=== PATIENT | male | born 1960 | race Caucasian/White ===

== ENCOUNTER → 2019-04-21 | Outpatient (CLI) | payer OTHER ==
[~2019-04-21] MED LIST: ACET500T68 PO; ASPI325T8 PO; MULT-245 PO; NAPR-514 PO; SAW/1TAB2 PO
[2019-04-21 09:43] LABS: BASO # 0.1 x10^3/uL (0.0-0.2); BASO % 1 % (0-3); EOS # 0.1 x10^3/uL (0.0-0.7); EOS % 1 % (0-3); HEMATOCRIT 48.3 % (39.0-53.0); HEMOGLOBIN 16.3 g/dL (13.0-17.5); LYMPH # 1.5 x10^3/uL (1.0-4.8); LYMPH % 20 % (24-48); MEAN CORPUSCULAR HEMOGLOBIN 30 pg (25-35); MEAN CORPUSCULAR HGB CONC 34 g/dL (31-37); MEAN CORPUSCULAR VOLUME 90 fL (79-100); MONO # 0.7 x10^3/uL (0.0-1.1); MONO % 9 % (0-9); NEUT # 5.2 x10^3/uL (1.8-7.7); NEUT % 69 % (31-73); PLATELET COUNT 268 x10^3/uL (140-400); RED BLOOD COUNT 5.39 x10^6/uL (4.30-5.70); RED CELL DISTRIBUTION WIDTH 13.5 % (11.5-14.5); WHITE BLOOD COUNT 7.4 x10^3/uL (4.0-11.0)
[2019-04-21 10:07] LABS: CREATININE 0.9 mg/dL (0.7-1.3); GFR 86.7; POTASSIUM 4.3 mmol/L (3.5-5.1)
[2019-04-21 10:20] LABS: PROTHROMBIN TIME PATIENT 12.1 SEC (11.7-14.0)
--- NOTE | 2019-04-21 13:18 | EKG ---
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
--- NOTE | 2019-04-21 17:52 | RAD ---
EXAM: CHEST PA LATERAL INDICATION: Preop joint replacement. TECHNIQUE: PA and lateral views COMPARISON: None FINDINGS: The heart size is normal. The great vessels appear unremarkable. There is no hilar or mediastinal mass. The lungs are clear. There is no pleural effusion or pneumothorax. There are no significant osseous abnormalities. IMPRESSION: No active cardiopulmonary disease. Electronically signed by: Rickie Olivera MD (04/21/2019 5:49 PM) [id number]
[2019-04-22 00:08] LABS: HEMOGLOBIN A1C 5.6 % (4.8-5.6)
== END | disposition home or self-care (01) ==
LOC: SURGPAT 13:25
PROVIDERS: ATTEND Orthopaedic Surgery
DX: Z01.818 Encounter for other preprocedural examination (principal); M17.12 Unilateral primary osteoarthritis, left knee; E66.9 Obesity, unspecified
CPT/HCPCS: 36415; 71046; 80048; 82306; 83036; 85025; 85610; 85651; 85730; 87641; 93005

== ENCOUNTER → 2019-07-25 | Outpatient (CLI) | payer OTHER ==
[2019-04-23 13:23] VITALS: BP 137/88
[~2019-07-25] MED LIST changes: +ASPI325T11 PO; +CELE200C PO; +OXYC1TAB22 PO
[2019-07-25 15:30] LABS: PROTHROMBIN TIME PATIENT 12.3 SEC (11.7-14.0)
[2019-07-25 16:00] LABS: ALBUMIN 3.7 g/dL (3.4-5.0); C-REACTIVE PROTEIN 4.8 mg/L (0-3.3); CALCIUM 8.5 mg/dL (8.5-10.1); CREATININE 0.9 mg/dL (0.7-1.3); GFR 86.4; POTASSIUM 3.9 mmol/L (3.5-5.1)
[2019-07-27 02:06] LABS: HEMOGLOBIN A1C 5.6 % (4.8-5.6)
== END | disposition home or self-care (01) ==
LOC: SURGPAT 14:19
PROVIDERS: ATTEND Orthopaedic Surgery
DX: Z01.818 Encounter for other preprocedural examination (principal); Z11.59 Encounter for screening for other viral diseases; M17.12 Unilateral primary osteoarthritis, left knee
CPT/HCPCS: 36415; 80048; 82040; 82306; 83036; 85610; 85730; 86140; 87641; U0003

== ENCOUNTER 2019-07-29 05:50 | Inpatient (IN) | payer OTHER ==
--- NOTE | 2019-07-28 17:25 | PDOC1 ---
History and Physical Date of Admission Date of Admission 07/28/2019 Identification/Chief Complaint Chief Complaint Osteoarthritis pain of both knees Source Source: Chart review History of Present Illness History of Present Illness Aroldo is a 58-year-old man here with bilateral knee pain (L>R). Prior patient of mine and I treated him in the past for knee osteoarthritis nonoperatively. 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 In last 10 years has tried cortisone injections, years of NSAID's, aspirin, and alternating naproxen/Tylenol. Tried a brace on his left knee that did not help. No history of physical therapy. History of plantar fasciitis in right foot. Currently, he reports progressive pain in both knees for the past several years. He notes that his knees bother him at work although he doesn't need to kneel on his knees very often at work. He would be unable to walk 30 minutes for exercise and reports pain while walking at [employer]. Would be able to walk for exercise until 4 months ago after an injury to the left knee. No known metal/nickel allergy. Denies history of thrombosis. Family History Family History mother-alive father-alive Social History Smoke: No ALCOHOL: rare Current Medications Current Medications Current Medications Ondansetron HCl (Zofran) 4 mg PRN Q6HRS PRN IV NAUSEA/VOMITING; Start 07/29/19 at 07:00; Stop 07/30/19 at 06:59 Fentanyl Citrate (Fentanyl 2ml Vial) 25 mcg PRN Q5MIN PRN IV MILD PAIN 1-3; Start 07/29/19 at 07:00; Stop 07/30/19 at 06:59 Fentanyl Citrate (Fentanyl 2ml Vial) 50 mcg PRN Q5MIN PRN IV MODERATE TO SEVERE PAIN; Start 07/29/19 at 07:00; Stop 07/30/19 at 06:59 Morphine Sulfate (Morphine Sulfate) 1 mg PRN Q10MIN PRN IV SEVERE PAIN 7-10; Start 07/29/19 at 07:00; Stop 07/30/19 at 06:59 Ringer's Solution 1,000 ml @ 30 mls/hr Q24H IV ; Start 07/29/19 at 07:00; Stop 07/29/19 at 18:59 Lidocaine HCl (Xylocaine-Mpf 1% 2ml Vial) 2 ml PRN 1X PRN ID PRIOR TO IV START; Start 07/29/19 at 07:00; Stop 07/30/19 at 06:59 Hydromorphone HCl (Dilaudid) 0.5 mg PRN Q10MIN PRN IV SEV PAIN, Second choice; Start 07/29/19 at 07:00; Stop 07/30/19 at 06:59 Prochlorperazine Edisylate (Compazine) 5 mg PACU PRN PRN IV NAUSEA, MRX1; Start 07/29/19 at 07:00; Stop 07/30/19 at 06:59 Morphine Sulfate 5 mg/Ketorolac Tromethamine 30 mg/Ropivacaine 60 ml/Epinephrine HCl 0.5 mg/Sodium Chloride 100 ml @ 100 mls/hr 1X ONCE INT ART ; Start 07/29/19 at 06:00; Stop 07/29/19 at 06:59 Active Scripts Active Reported Aspirin 325 Mg Tablet 325 Mg PO DAILY Acetaminophen 500 Mg Tablet 2 Tab PO PRN Q4-6HRS PRN Allergies Allergies: Coded Allergies: No Known Drug Allergies (Unverified , 07/25/19) ROS Review of System OPHTHALMOLOGY: Blurred vision none. Double vision denies. Change in vision none. ENT: Hearing loss none. Change in voice denies. Rhinorrhea none. CARDIOLOGY: Palpitations none. Shortness of breath denies. Chest pain denies. CONSTITUTIONAL: Fever denies. Chills denies. Weight gain denies. Weakness none. weight loss denies. Fatigue none. GASTROENTEROLOGY: Diarrhea denies. Vomiting none. Dysphagia none. UROLOGY: Voiding normally yes. Hematuria none. MUSCULOSKELETAL: Chronic back or neck pain denies. Swelling of the feet, hands, ankles and /or legs denies. Joint pain reports. Tingling/numbness no. DERMATOLOGY: Rash denies. Lumps none. NEUROLOGY: Dizziness/lightheadedness denies. Double vision, temporary blindness denies. Tingling/numbness none. PSYCHOLOGY: Change in mood or personality denies. Memory loss none. ENDOCRINOLOGY: Obesity denies. Fatigue none. Weight loss none. HEMATOLOGY/LYMPH: Hepatitis denies. Enlarged lymph nodes denies. Physical Exam General: Alert, Cooperative HEENT: Atraumatic Lungs: Normal air movement Heart: RRR Abdomen: Soft Extremities: No clubbing, No edema, Other (The RIGHT knee shows a mildly antalgic gait. There is varus alignment. No masses. No detectable effusion. Tenderness on the joint lines. Range of motion is 5-115 degrees. There is crepitus with range of motion, and pain at the extremes of motion. The knee is stable to varus and valgus stress without subluxation or laxity. Muscle strength is slightly weak for the quadriceps 4+/5 which may be due to pain or avoidance, and does not seem neurogenic, and the muscle tone and bulk is slightly decreased. The hamstring strength is 5/5. The skin is normal with no scars, rashes, lesions or ulcers. Light touch sensation is intact. No edema and no varicosities. Dorsalis pedis pulse is intact and capillary refill is normal. The LEFT knee shows a mildly antalgic gait. There is varus alignment. No masses. No detectable effusion. Tenderness on the joint lines. Range of motion is 10-95 degrees. There is crepitus with range of motion, and pain at the extremes of motion. The knee is stable to varus and valgus stress without subluxation or laxity. Muscle strength is slightly weak for the quadriceps 4+/5 which may be due to pain or avoidance, and does not seem neurogenic, and the muscle tone and bulk is slightly decreased. The hamstring strength is 5/5. The skin is normal w ith no scars, rashes, lesions or ulcers. Light touch sensation is intact. No edema and no varicosities. Dorsalis pedis pulse is intact and capillary refill is normal. Foot: BILATERAL feet show normal skin, pulses, and sensation. Normal capillary refill. ) Skin: No rashes, No breakdown, No significant lesion Neuro: Normal speech, Sensation intact Vitals Vitals Vital Signs Date Time Temp Pulse Resp B/P (MAP) Pulse Ox O2 Delivery O2 Flow Rate FiO2 07/25/19 14:47 98.0 72 20 98 98.0 Images Images [facility] [address] [place] [address] IMAGING REPORT Signed PATIENT: AROLDO PIMENTEL ACCOUNT: [id number] : 1960 LOCATION: [facility] AGE: 58 SEX: M EXAM STATUS: REG CLI ORD. PHYSICIAN: CHRISTOPHER MORFIN MD REASON: PROCEDURE: KNEE BILAT 3V 3 VIEW STUDY OF BOTH KNEES Clinical indications: Bilateral knee pain. No known injury. Right knee: There is severe joint space narrowing and moderate spurring and mild subchondral cyst formation with subchondral sclerosis of the medial tibiofemoral joint compartment. There is mild spurring without joint space narrowing of the lateral tibiofemoral joint compartment. There is mild degenerative spurring of the patellofemoral joint compartment without joint space narrowing. No acute fracture or dislocation or lytic process is seen. Small right knee joint effusion is seen. IMPRESSION: Tricompartmental primary degenerative osteoarthritis of the right knee most severely involving the medial tibiofemoral joint compartment. Left knee: There is severe joint space narrowing and moderate spurring and mild subchondral sclerosis of the medial tibiofemoral joint compartment. There is mild spurring without joint space during involving the lateral tibiofemoral joint compartment. There is moderate spurring without joint space narrowing of the patellofemoral joint compartment. No acute fracture or dislocation or lytic process is seen. Small left knee joint effusion is seen. IMPRESSION: Tricompartmental primary degenerative osteoarthritis of the left knee most severely involving the medial tibiofemoral joint compartment. Electronically signed by: Rosalind Kent MD (04/03/2019 3:19 PM) [facility] DICTATED and SIGNED BY: ROSALIND KENT MD DATE: 04/03/19 1519 VTE Prophylaxis Ordered VTE Prophylaxis Devices: Yes VTE Pharmacological Prophylaxi: Yes Assessment/Plan Assessment/Plan He has [id number] osteoarthritis of both knees. He tried nonoperative treatment with cortisone injections, brace, NSAID's, and Naproxen without relief I believe that total knee replacement is the logical next step. He is interested in the possibility of bilateral total knee arthroplasty to cut down on time off work and we discussed the increased risk of complications and infection with bilateral knee replacement. I explained that I rarely recommend bilateral TKA although I would be willing to do this for him as he is very healthy and at a relatively low risk for postoperative complications. We discussed the potential risks of infection, neurovascular injury, fracture, bleeding, blood clots, malalignment, need for revision surgery, or other potential surgical or anesthetic complications. I recommended the robotic NAVIO instrumentation and we discussed my reasoning. We also discussed postoperative treatment and expectations including residual numbness over the knee. All of his questions were answered and he desires to proceed with total knee replacement. He is here today for elective bilateral total knee arthroplasty. Justicifation of Admission Dx: Justifications for Admission: Justification of Admission Dx: N/A CHRISTOPHER MORFIN MD Jul 28, 2019 17:25
[~2019-07-29] VITALS: Ht 180.3 cm; Wt 124.3 kg
[2019-07-29] VITALS (8 sets, daily range): BP systolic 109–156; BP diastolic 73–99
[~2019-07-29 05:50] MED LIST changes: -ASPI325T11 PO; -CELE200C PO; -OXYC1TAB22 PO
[2019-07-29] MEDS ORDERED: ACETAMINOPHEN 500 MG TABLET PO PRN (06:00)
[2019-07-29] MEDS ORDERED: CELECOXIB 100 MG CAPSULE. PO SCH (06:00)
[2019-07-29] MEDS ORDERED: TRANEXAMIC ACID 1,000 MG in IV NS 50ML -- 1ST BAG INJ ONE (06:00)
[2019-07-29] MEDS ORDERED: MORPHINE SULFATE 5 MG, KETOROLAC 30MG VIAL 30 MG, ROPIVacaine 0.5% PF 60 ML, EPINEPHrin... INT ART ONE ×5 (06:00)
[2019-07-29] MEDS ORDERED: ONDANSETRON PF 4 MG/2 ML VIAL. ONE (06:53)
[2019-07-29] MEDS ORDERED: PROPOFOL 10 MG/ML (20ML) VIAL. IV ONE ×2 (06:53→08:32)
[2019-07-29] MEDS ORDERED: DEXAMETHASONE SOD PHOS 4 MG/ML VIAL ONE (06:53)
[2019-07-29] MEDS ORDERED: fentaNYL PF VIAL 100 MCG/2 ML VIAL ONE ×3 (06:53→07:54)
[2019-07-29] MEDS ORDERED: LIDOCAINE 2% PF 5 ML VIAL. ONE (06:53)
[2019-07-29] MEDS ORDERED: ROCURONIUM 50 MG/5 ML VIAL. ONE ×2 (06:54→07:53)
[2019-07-29 07:00] LABS: BASO % 1 % (0-3); EOS # 0.1 x10^3/uL (0.0-0.7); EOS % 1 % (0-3); HEMOGLOBIN 15.7 g/dL (13.0-17.5); LYMPH # 2.1 x10^3/uL (1.0-4.8); LYMPH % 30 % (24-48); MEAN CORPUSCULAR HEMOGLOBIN 31 pg (25-35); MEAN CORPUSCULAR HGB CONC 34 g/dL (31-37); MEAN CORPUSCULAR VOLUME 90 fL (79-100); MONO # 0.7 x10^3/uL (0.0-1.1); MONO % 10 % (0-9); NEUT % 58 % (31-73); PLATELET COUNT 265 x10^3/uL (140-400); RED BLOOD COUNT 5.14 x10^6/uL (4.30-5.70); RED CELL DISTRIBUTION WIDTH 13.4 % (11.5-14.5); WHITE BLOOD COUNT 6.9 x10^3/uL (4.0-11.0)
[2019-07-29] MEDS ORDERED: ONDANSETRON PF 4 MG/2 ML VIAL. IV PRN (07:00)
[2019-07-29] MEDS ORDERED: IV RINGERS,LACTATED 1000ML 1,000 ML IV SCH (07:00)
[2019-07-29] MEDS ORDERED: fentaNYL PF VIAL 100 MCG/2 ML VIAL IV PRN ×2 (07:00)
[2019-07-29] MEDS ORDERED: VANCOMYCIN 1 GM VIAL. ONE ×4 (07:00→07:01)
[2019-07-29] MEDS ORDERED: HYDROmorphone 2 MG/ML VIAL IV PRN (07:00)
[2019-07-29] MEDS ORDERED: PROCHLORPERAZINE 10 MG/2 ML VIAL. IV PRN (07:00)
[2019-07-29] MEDS ORDERED: ceFAZolin 2GM PREMIX 2 GM/50 ML BAG IV ONE (07:00)
[2019-07-29] MEDS ORDERED: LIDOCAINE 1% PF 2 ML VIAL. ID PRN (07:00)
[2019-07-29] MEDS ORDERED: MORPHINE SULFATE 2 MG/ML VIAL. IV PRN (07:00)
[2019-07-29] MEDS ORDERED: TOBRAMYCIN POWDER 1.2 GM VIAL. ONE ×2 (07:01)
[2019-07-29] MEDS ORDERED: SUCCINYLCHOLINE 200 MG/10 ML VIAL. ONE (07:03)
[2019-07-29] MEDS ORDERED: MIDAZOLAM HCL/PF 2 MG/2 ML VIAL. ONE (07:39)
[2019-07-29] MEDS ORDERED: SEVOFLURANE > 120 MINUTES. IH ONE (07:53)
[2019-07-29] MEDS ORDERED: FAMOTIDINE 20 MG/2 ML VIAL ONE (07:54)
[2019-07-29] MEDS ORDERED: TRANEXAMIC ACID 1,000 MG in IV NS 50ML -- 2ND BAG INJ ONE (08:00)
[2019-07-29] MEDS ORDERED: GLYCOPYRROLATE 1 MG/5 ML VIAL. ONE (08:03)
[2019-07-29] MEDS ORDERED: NEOSTIGMINE METHYLSULFATE 5 MG/5 ML SYRINGE. ONE (08:04)
[2019-07-29] MEDS ORDERED: hydrALAZINE 20 MG/ML VIAL. ONE (08:29)
[2019-07-29] MEDS ORDERED: ceFAZolin SODIUM IV Push 1 GM VIAL. IVP ONE (10:18)
[2019-07-29] MEDS ORDERED: MORPHINE SULFATE 10 MG/ML VIAL. ONE (12:28)
--- NOTE | 2019-07-29 12:39 | PDOC4 ---
Operative Note Operative Note Date of Procedure: July 29, 2019 Pre-Op Diagnosis: * Unilateral primary osteoarthritis, left knee. M17.12 * Unilateral primary osteoarthritis, right knee. M17.11 Post-Op Diagnosis: same Procedure: bilateral total knee arthroplasty with patella resurfacing, robotic assisted, CPT 79225-97 Surgeon: Christopher Gutierrez MD [employer]ine [employer] Separator Operator: Afshin VASQUEZ Anesthesia: General EBL: 200 mL Specimens Obtained: bilateral knee bone and soft tissue Complications: none Drains: hemovac plus pain catheter Tourniquet time: 87 minutes left knee, 79 minutes right knee Tourniquet Pressure: 300 mm Hg Indications for Procedure: Arthritis pain unrelieved by nonoperative management Findings: Severe osteoarthritis with bone on bone contact medially of each knee. Full thickness cartilage loss of each knee at the patellofemoral joint at the medial patellar facet and medial trochlea. Small areas of high-grade cartilage full-thickness loss on the lateral compartments bilaterally. Severe flexion contracture bilaterally 16 degrees left and 18 degrees right as measured by NAVIO. Both knees had fixed varus deformity, which required medial collateral release on the tibia of bilateral knees. Neither knee required lateral patellofemoral release. Implants used: * Saucedo & Nephew Size 6 left bicruciate stabilized Journey II BCS Oxinium femoral component, size 5 left Journey nonporous tibial baseplate, size 5-6 12 mm left Journey II BCS XLPE articular insert, 35 mm oval Mary II resurf acing patellar component * Saucedo & Nephew Size 6 right bicruciate stabilized Journey II BCS Oxinium femoral component, size 5 right Journey nonporous tibial baseplate, size 5-6 12 mm right Journey II BCS XLPE articular insert, 35 mm oval Mary II resurfacing patellar component * Procedure in Detail: The patient was identified in the preoperative holding area, and both knees were marked by me. The patient was taken to the operating room where the patient was anesthetized by the Department of Anesthesia. Tranexamic acid 1 g was given intravenously for intraoperative hemostasis. A "time-out" procedure was performed. The patient was positioned supine on the operative table with a tourniquet on the upper thigh bilaterally. Both lower limbs were thoroughly sc rubbed, then sterile surgical prep solution was applied, and both limbs were draped in sterile fashion. An impervious stockinet and adhesive drape were used on each lower leg, such that the skin was entirely covered. The operating team wore personal exhaust-ventilated hoods including the [employer] Personal Protection Toga Zippered Peel-Away protection system for me and for my therapist's assistant. The left lower limb was exsanguinated with an Esmarch bandage, and the tourniquet was inflated. A midline skin incision was made with a scalpel using the patella and tibial tubercle as landmarks. Electrocautery was used for hemostasis. My therapist's assistant used rake retractors. An impervious stockinet and an adhesive drape were used such that the skin was entirely covered. The limb was exsanguinated with an Esmarch bandage, and the tourniquet was inflated. A midline skin incision was made with a scalpel using the patella and tibial tubercle as landmarks. Electrocautery was used for hemostasis. My therapist's assistant used rake retractors and a laparotomy sponge. A medial parapatellar arthrotomy incision was used with extension into the distal quadriceps tendon. The patella was retracted laterally and Hohmann retractors were now used by my therapist's assistant. Excess synovium, the menisci, and the cruciate ligaments were resected sharply. A periarticular multimodal ropivacaine anesthetic injection was used in the suprapatellar pouch and distal quadriceps muscle. The patella was everted and exposed. The patella thickness was measured with a caliper, and then cut freehand with a saw, using caliper measurements to assess the resection. The lateral retinaculum was partially released from the lateral patella using electrocautery. Rongeurs were used to make sure there were no remaining exposed patellar osteophytes medially or laterally. The patella was sized, and then drilled for an oval three-peg patella component. The tibial tracker array for the NAVIO system was applied to the tibial crest four finger breadths below the tibial tubercle, using percutaneous incisions and bicortical pins. The femoral tracker array was applied outside of the original incision using two separate stab incisions using bicortical pins. Checkpoint verification pins were applied to the femur and tibia. Using the point probe, the medial and lateral malleoli were localized and the locations were stored. The center of the tibia was noted at the anterior cruciate ligament insertion and stored. The center of the femur was marked at the intersection of Whitesidess line with the transepicondylar axis. The hip center calculation was performed with range of motion of the hip. The femur neutral position was identified, and simulated weightbearing was performed with axial compression on the foot. Range of motion without stress was performed and the data collected. Range of motion with valgus stress, and range of motion with varus stress data collection was also performed. Rotational references include the Whitesidess line, and the trans-epicondylar axis. The femoral articular surface was now mapped in 3 dimensions using the point probe and digital data collected. The tibial condyle articular surfaces and cortical edges were mapped in 3 dimensions using the point probe including the medial and lateral tibial plateau. Implant planning was now performed on-screen with manipulation of the implant sizes, cut thicknesses and gaps, component rotation, component flexion/extension and component varus/valgus until satisfactory ligament balance, alignment and stability of the knee was expected throughout the range of motion. My therapist's assistant held Hohmann retractors and an [facility] retractor to protect the medial and lateral collateral ligaments, the patellar tendon, the skin and the other soft tissues. The point probe was used to confirm the location of the checkpoint verification pins. The distal femoral surface was now prepared using the Anspach gloria with footpedal, and the NAVIO handpiece for bone removal to the previously planned distal femoral resection. The crosshairs at the pin locat ions were marked by using a mallet and the point probe for definitive location. A 5-in-1 Journey II cutting guide was then applied and the position was checked with the virtual horace wing from the NAVIO to ensure proper placement as the pins were applied. The posterior, anterior, and all chamfer cuts were made with the oscillating saw. Excess bone was removed with an osteotome and rongeurs. The tibial cutting guide was applied, positioned using the NAVIO virtual horace wing, and secured to the upper tibia using three pins at the previously planned location. The virtual horace wing was used to confirm the resection depth, slope and coronal alignment. The upper tibia was cut made with an oscillating saw. My therapist's assistant held Hohmann retractors and a posterior cruciate ligament retractor to protect the medial and lateral collateral ligaments, the patellar tendon, the skin, the peroneal nerve and the other soft tissues. The upper tibia was sized with a trial baseplate. The posterior compartment was cleared of osteophytes and loose bodies. The periarticular anesthetic injection was used in the posterior compartment. The box cut for a posterior stabilized component was made. A preliminary reduction was performed with a trial femur, trial tibial baseplate and trial polyethylene. The NAVIO system was used to confirm range of motion, and postoperative stressed gap assessment. A medial release was required, using a 10 blade scalpel, and a Whitaker elevator to elevate the medial structures from the upper medial tibia. The stability was assessed using different thicknesses of tibial articular surface to find satisfactory stability and good range of motion. The rotation of the tibial component was marked on the upper tibia. Final trial reduction was now performed verifying patella tracking and tibiofemoral stability and alignment. The bone pins and tracker arrays were removed, and the checkpoint verification pins were removed. The tibia preparation was completed with a drill, saw, and fin punch at the previously noted rotation. The final implants were verified and opened. Outer gloves were changed by the operating team. Betadine lavage was used. The bone cuts were irrigated with saline using the Neomatrix InterPulse device and then dried with suction and laparotomy sponges. Two packages of Saucedo + Nephew Rally HV bone cement were mixed in powdered form with Vancomycin 1gm and Tobramycin 1.2 gm, and then vacuum-mixed with the monomer, and placed into a cement gun. The cut surfaces of the bone were thoroughly dried with suction and with laparotomy sponges for cement interdigitation. The final components were cemented into place. The knee was kept at full extension while the cement hardened, and excess cement was removed. Tranexamic acid 1 g was redosed intravenously for additional intraoperative hemostasis. The tourniquet was released, and electrocautery was used for hemostasis. A final periarticular anesthetic injection was used for pain relief. The bone pin sites on the tibial crest were closed with #3-0 Nylon sutures. A final check of [id number] and stability was made, and the polyethylene implant final size was chosen. The polyethylene implant was secured to the tibial baseplate, and the knee was reduced a final time and range of motion and stability was confirmed. Thorough irrigation was used. A pain catheter, and a 15 Fr Hemovac were inserted. Topical Vancomycin 1 gm was used during the closure. The arthrotomy was closed with interrupted [id number] #1 Vicryl suture. The arthrotomy incision was then run with #1 STRATAFIX Symmetric PDS Plus Knotless suture. The subcutaneous tissues were approximated initially with #2-0 Vicryl inverted interrupted sutures by me and my therapist's assistant. Next the subcuticular layer was approximated in a running fashion with #3-0 STRATAFIX suture by my therapist's assistant. A sterile towel was placed over the left leg until the completion when the Prerna dressing was applied. An additional 2 g of intravenous Ancef was given before the right knee surgery. The right lower limb was exsanguinated with an Esmarch bandage, and the tourniquet was inflated. A midline skin incision was made with a scalpel using the patella and tibial tubercle as landmarks. Electrocautery was used for hemostasis. My therapist's assistant used rake retractors and a laparotomy sponge. A medial parapatellar arthrotomy incision was used with extension into the distal quadriceps tendon. The patella was retracted laterally and Hohmann retractors were now used by my therapist's assistant. Excess synovium, the menisci, and the cruciate ligaments were resected sharply. A periarticular multimodal ropivacaine anesthetic injection was used in the suprapatellar pouch and distal quadriceps muscle. The patella was everted and exposed. The patella thickness was measured with a caliper, and then cut freehand with a saw, using caliper measurements to assess the resection. The lateral retinaculum was partially released from the lateral patella using electrocautery. Rongeurs were used to make sure there were no remaining exposed patellar osteophytes medially or laterally. The patella was sized, and then drilled for an oval three-peg patella component. The tibial tracker array for the NAVIO system was applied to the tibial crest four finger breadths below the tibial tubercle, using percutaneous incisions and bicortical pins. The femoral tracker array was applied outside of the original incision using two separate stab incisions using bicortical pins. Checkpoint verification pins were applied to the femur and tibia. Using the point probe, the medial and lateral malleoli were localized and the locations were stored. The center of the tibia was noted at the anterior cruciate ligament insertion and stored. The center of the femur was marked at the intersection of Whitesidess line with the transepicondylar axis. The hip center calculation was performed with range of motion of the hip. The femur neutral position was identified, and simulated weightbearing was performed with axial compression on the foot. Range of motion without stress was performed and the data collected. Range of motion with valgus stress, and range of motion with varus stress data collection was also performed. Rotational references include the Whitesidess line, and the trans-epicondylar axis. The femoral articular surface was now mapped in 3 dimensions using the point probe and digital data collected. The tibial condyle articular surfaces and cortical edges were mapped in 3 dimensions using the point probe including the medial and lateral tibial plateau. Implant planning was now performed on-screen with manipulation of the implant sizes, cut thicknesses and gaps, component rotation, component flexion/extension and component varus/valgus until satisfactory ligament balance, alignment and stability of the knee was expected throughout the range of motion. My therapist's assistant held Hohmann retractors and an [facility] retractor to protect the medial and lateral collateral ligaments, the patellar tendon, the skin and the other soft tissues. The point probe was used to confirm the location of the eckpoint verification pins. The distal femoral surface was now prepared using the Anspach gloria with footpedal, and the NAVIO handpiece for bone removal to the previously planned distal femoral resection. The crosshairs at the pin locations were marked by using a mallet and the point probe for definitive location. A 5-in-1 Journey II cutting guide was then applied and the position was checked with the virtual horace wing from the NAVIO to ensure proper placement as the pins were applied. The posterior, anterior, and all chamfer cuts were made with the oscillating saw. Excess bone was removed with an osteotome and rongeurs. The tibial cutting guide was applied, positioned using the NAVIO virtual horace wing, and secured to the upper tibia using three pins at the previously planned location. The virtual horace wing was used to confirm the resection depth, slope and coronal alignment. The upper tibia was cut made with an oscillating saw. My therapist's assistant held Hohmann retractors and a posterior cruciate ligament retractor to protect the medial and lateral collateral ligaments, the patellar tendon, the skin, the peroneal nerve and the other soft tissues. The upper tibia was sized with a trial baseplate. The posterior compartment was cleared of osteophytes and loose bodies. The periarticular anesthetic injection was used in the posterior compartment. The box cut for a posterior stabilized component was made. A preliminary reduction was performed with a trial femur, trial tibial baseplate and trial polyethylene. The NAVIO system was used to confirm range of motion, and postoperative stressed gap assessment. A medial release was required, using a 10 blade scalpel, and a Whitaker elevator to elevate the medial structures from the upper medial tibia similar to the left knee. The stability was assessed using different thicknesses of tibial articular surface to find satisfactory stability and good range of motion. The rotation of the tibial component was marked on the upper tibia. Final trial reduction was now performed verifying patella tracking and tibiofemoral stability and alignment. The bone pins and tracker arrays were removed, and the checkpoint verification pins were removed. The tibia preparation was completed with a drill, saw, and fin punch at the previously noted rotation. The final implants were verified and opened. Outer gloves were changed by the operating team. Betadine lavage was used. The bone cuts were irrigated with saline using the Neomatrix InterPulse device and then dried with suction and laparotomy sponges. Two packages of Saucedo + Nephew Rally HV bone cement were mixed in powdered form with Vancomycin 1gm and Tobramycin 1.2 gm, and then vacuum-mixed with the monomer, and placed into a cement gun. The cut surfaces of the bone were thoroughly dried with suction and with laparotomy sponges for cement interdigitation. The final components were cemented into place. The knee was k ept at full extension while the cement hardened, and excess cement was removed. He had previously received 2 grams of IV tranexamic acid so no additional doses were given at this time. The tourniquet was released, and electrocautery was used for hemostasis. A final periarticular anesthetic injection was used for pain relief. The bone pin sites on the tibial crest were closed with #3-0 Nylon sutures. A final check of [id number] and stability was made, and the polyethylene implant final size was chosen. The polyethylene implant was secured to the tibial baseplate, and the knee was reduced a final time and range of motion and stability was confirmed. Thorough irrigation was used. A pain catheter, and a 12 Fr Hemovac were inserted. Topical Vancomycin 1 gm was used during the closure. The arthrotomy was closed with interrupted [id number] #1 Vicryl suture. The arthrotomy incision was then run with #1 STRATAFIX Symmetric PDS Plus Knotless suture. The subcutaneous tissues were approximated initially with #2-0 Vicryl inverted interrupted sutures by my therapist's assistant. Next the subcuticular layer was approximated in a running fashion with #3-0 STRATAFIX suture by my therapist's assistant. The skin incisions was then covered and reinforced with PRERNA single use negative pressure wound therapy dressings. Needle and sponge counts were correct. There were no apparent complications. The patient returned to the recovery room in stable condition. CHRISTOPHER GUTIERREZ MD Jul 29, 2019 12:39
[2019-07-29] MEDS ORDERED: PROCHLORPERAZINE 5 MG TABLET. PO PRN (12:45)
[2019-07-29] MEDS ORDERED: fentaNYL PF VIAL 100 MCG/2 ML VIAL IVP PRN (12:45)
[2019-07-29] MEDS ORDERED: METOCLOPRAMIDE HCL 10 MG/2 ML VIAL. IVP PRN (12:45)
[2019-07-29] MEDS ORDERED: 0.9 % SODIUM CHLORIDE 10 ML DISP.SYRIN. IV PRN (12:45)
[2019-07-29] MEDS ORDERED: MORPHINE SULFATE 4 MG/ML VIAL. IVP PRN (12:45)
[2019-07-29] MEDS ORDERED: MORPHINE SULFATE 2 MG/ML VIAL. IVP PRN (12:45)
[2019-07-29] MEDS ORDERED: diphenhydrAMINE 50 MG/ML VIAL IVP PRN (12:45)
[2019-07-29] MEDS ORDERED: oxyCODONE/APAP 5/325 1 TAB TABLET PO PRN (12:45)
[2019-07-29] MEDS ORDERED: CALCIUM CARBONATE 500 MG TAB.CHEW PO PRN (12:45)
[2019-07-29] MEDS ORDERED: ZOLPIDEM 5 MG TABLET. PO PRN (12:45)
[2019-07-29] MEDS ORDERED: DEXTROSE 50% 25 GM / 50ML DISP.SYRIN. IV PRN (12:45)
--- NOTE | 2019-07-29 13:20 | RAD ---
EXAM: KNEE BILAT 2V 07/29/2019 12:39 PM CLINICAL INDICATION:Postop COMPARISON:AP and crosstable lateral views of the right and left knee TECHNIQUE:Bilateral knee radiograph 04/03/2019 FINDINGS:There are new immediate post surgical changes of bilateral total knee arthroplasties. The prostheses are in expected alignment. No periprosthetic lucency or fracture. Postoperative soft tissue gas, swelling, and surgical drains are noted. IMPRESSION:New immediate postoperative changes of bilateral total knee arthroplasties. No evidence of complication. Electronically signed by: Haydee Barriga MD (07/29/2019 1:17 PM) [id number]
[2019-07-29] MEDS ORDERED: PROCHLORPERAZINE 10 MG/2 ML VIAL. ONE (13:42)
[2019-07-29] MEDS: fentaNYL PF VIAL 100 MCG/2 ML VIAL IVP PRN (14:34)
--- NOTE | 2019-07-29 15:10 | NUR ---
Arrived to unit by bed from PACU. Awakens easily. Extra blankets given do to patient shivering. Dressings on both knees are d/i with IAC and Hemovac drain. Able to wiggle toes easily, good sensation, pedal pulses + bilaterally and cool touch. JEAN-PAUL's on bilaterally. Ice packs on both knees. IVF's intact and infusing. O2 at 3l per n/c and sating 96%. Oriented to room and controls. Side rails up x's 2 with call light in reach. at bedside. Cont. monitor.
--- NOTE | 2019-07-29 16:23 | PDOC ---
Provider Note Provider Note Report reviewed and images independently reviewed. Satisfactory bilateral total knee arthroplasty without apparent complication. [facility] [address] [place] [address] IMAGING REPORT Signed PATIENT: AROLDO PIMENTEL ACCOUNT: [id number] : 1960 LOCATION: SURG AGE: 59 SEX: M EXAM STATUS: [facility] [place] [facility]D. PHYSICIAN: CHRISTOPHER MORFIN MD REASON: POST OP PROCEDURE: KNEE BILAT 2V EXAM: KNEE BILAT 2V 07/29/2019 12:39 PM CLINICAL INDICATION:Postop COMPARISON:AP and crosstable lateral views of the right and left knee TECHNIQUE:Bilateral knee radiograph 04/03/2019 FINDINGS:There are new immediate post surgical changes of bilateral total knee arthroplasties. The prostheses are in expected alignment. No periprosthetic lucency or fracture. Postoperative soft tissue gas, swelling, and surgical drains are noted. IMPRESSION:New immediate postoperative changes of bilateral total knee arthroplasties. No evidence of complication. Electronically signed by: Haydee Barriga MD (07/29/2019 1:17 PM) [id number] DICTATED and SIGNED BY: HAYDEE BARRIGA MD DATE: 07/29/19 1317 Justicifation of Admission Dx: Justifications for Admission: Justification of Admission Dx: N/A CHRISTOPHER MORFIN MD Jul 29, 2019 16:23
[2019-07-29] MEDS: oxyCODONE/APAP 5/325 1 TAB TABLET PO PRN ×2 (16:40→21:16)
[2019-07-29] MEDS: ONDANSETRON ODT 4 MG TAB.RAPDIS. PO SCH (18:00)
[2019-07-29] MEDS: ONDANSETRON PF 4 MG/2 ML VIAL. IVP SCH (18:00)
[2019-07-29] MEDS: KETOROLAC 30MG VIAL 30 MG, BUPIVACAINE MPF 0.25% 20 ML, EPINEPHrine 0.5 MG in TOTAL VOL... INT ART SCH ×2 (18:00→18:09)
[2019-07-29] MEDS: ASPIRIN ENTERIC COATED 325 MG TABLET.DR. PO SCH (21:13)
[2019-07-29] MEDS: IV NORMAL SALINE 1000ML BAG 1,000 ML IV SCH (21:21)
[2019-07-30] MEDS: oxyCODONE/APAP 5/325 1 TAB TABLET PO PRN ×5 (01:28→20:46)
[2019-07-30 01:31] VITALS: BP 111/75
[2019-07-30 03:48] LABS: HEMATOCRIT 35.7 % (39.0-53.0); HEMOGLOBIN 12.3 g/dL (13.0-17.5)
[2019-07-30] MEDS: KETOROLAC 30MG VIAL 30 MG, BUPIVACAINE MPF 0.25% 20 ML, EPINEPHrine 0.5 MG in TOTAL VOL... INT ART SCH ×2 (05:59→06:00)
[2019-07-30 06:00] VITALS: BP 109/68
[2019-07-30] MEDS: ONDANSETRON PF 4 MG/2 ML VIAL. IVP SCH ×3 (06:00→12:00)
[2019-07-30] MEDS: ONDANSETRON ODT 4 MG TAB.RAPDIS. PO SCH ×3 (06:00→12:00)
[2019-07-30] MEDS ORDERED: MAGNESIUM HYDROXIDE 2,400 MG/30 ML ORAL.SUSP. PO PRN (06:00)
--- NOTE | 2019-07-30 06:01 | NUR ---
Bilateral total knee IAC injections started. Only able to scan one code as same code for Left and Right injection, had to administer chart one injection.
--- NOTE | 2019-07-30 06:02 | NUR ---
Unable to infuse left knee injection as port broke off from tubing in night, Patient disconnected tubing to right hemovac and large amount blood on bedding, linen changed, port and drain cleaned with alcohol and reconnected and clamped to infuse IAC to right knee.
[2019-07-30] MEDS: SENNOSIDES/DOCUSATE 8.6/50MG TABLET. PO SCH (07:59)
[2019-07-30] MEDS: CELECOXIB 100 MG CAPSULE. PO SCH (07:59)
[2019-07-30] MEDS: ASPIRIN ENTERIC COATED 325 MG TABLET.DR. PO SCH ×2 (08:00→20:46)
[2019-07-30] MEDS: MULTIVITAMIN with MINERAL TABLET. PO SCH (08:00)
--- NOTE | 2019-07-30 10:06 | NUR ---
Patients Soto catheter removed around 924 without any complications or concerns noted. Patient ambulated well with a walker with therapy this morning. at bedside. Bilateral knee replacements noted with dressings over each of them intact. Will continue to monitor.
[2019-07-30] MEDS: fentaNYL PF VIAL 100 MCG/2 ML VIAL IVP PRN (10:17)
[2019-07-30] MEDS ORDERED: ONDANSETRON PF 4 MG/2 ML VIAL. IVP PRN (12:00)
[2019-07-30] MEDS ORDERED: ONDANSETRON ODT 4 MG TAB.RAPDIS. PO PRN (12:00)
[2019-07-30] MEDS: IV NORMAL SALINE 1000ML BAG 1,000 ML IV SCH (12:13)
--- NOTE | 2019-07-30 15:45 | NUR ---
RIGHT KNEE: Patients IAC and Hemovac removed around 1510. Scant amount of drainage noted at IAC site and a moderate amount was noted at Hemovac site-direct pressure applied. Foam dressings applied over both areas. PRERNA dressing with a small amount of dried bloody drainage noted and working properly at this time with green light flashing. LEFT KNEE: Patients IAC and Hemovac removed around 1500. IAC cap/top part was some how broken off but catheter was still intact in patients left knee. Scant amount of drainage noted at IAC site when removed and a small amount was noted at Hemovac site-direct pressure applied. Foam dressings applied over both areas. PRERNA dressing with a scant amount of dried bloody drainage noted and working properly at this time with green light flashing. Will continue to monitor.
[2019-07-30] MEDS ORDERED: BISACODYL 10 MG SUPP.RECT. PR PRN (16:00)
--- NOTE | 2019-07-30 16:51 | PDOC ---
PROGRESS NOTES Subjective Subjective Doing well, but still requiring IV pain meds for pain, in addition to oral meds. Objective Vital Signs Vital Signs Date Time Temp Pulse Resp B/P (MAP) Pulse Ox O2 Delivery O2 Flow Rate FiO2 07/30/19 16:46 96 Room Air 07/30/19 06:00 98.8 101 18 109/68 (82) 98.8 07/29/19 16:49 1.0 Physical Exam PRERNA dressing working bilaterally. Dressings dry. Hemovac and pain catheter have been removed bilat. Calf soft and NT. Homans neg. Able to DF and planta rflex foot with no evidence of neurovascular injury nor compartment syndrome. No blisters. Minimal erythema. Moderate swelling as expected of both knees. More swelling and inflammation on the left as expected--that was the more difficult knee. ROM about 5-70 on R and 10-50 on L. Labs Laboratory Tests Test 07/29/19 06:45 07/30/19 03:30 White Blood Count 6.9 x10^3/uL (4.0-11.0) Red Blood Count 5.14 x10^6/uL (4.30-5.70) Hemoglobin 15.7 g/dL (13.0-17.5) 12.3 g/dL (13.0-17.5) Hematocrit 46.0 % (39.0-53.0) 35.7 % (39.0-53.0) Mean Corpuscular Volume 90 fL (79-100) Mean Corpuscular Hemoglobin 31 pg (25-35) Mean Corpuscular Hemoglobin Concent 34 g/dL (31-37) 34 g/dL (31-37) Red Cell Distribution Width 13.4 % (11.5-14.5) Platelet Count 265 x10^3/uL (140-400) Neutrophils (%) (Auto) 58 % (31-73) Lymphocytes (%) (Auto) 30 % (24-48) Monocytes (%) (Auto) 10 % (0-9) Eosinophils (%) (Auto) 1 % (0-3) Basophils (%) (Auto) 1 % (0-3) Neutrophils # (Auto) 4.0 x10^3/uL (1.8-7.7) Lymphocytes # (Auto) 2.1 x10^3/uL (1.0-4.8) Monocytes # (Auto) 0.7 x10^3/uL (0.0-1.1) Eosinophils # (Auto) 0.1 x10^3/uL (0.0-0.7) Basophils # (Auto) 0.0 x10^3/uL (0.0-0.2) Laboratory Tests Test 07/30/19 03:30 Hemoglobin 12.3 g/dL (13.0-17.5) Hematocrit 35.7 % (39.0-53.0) Mean Corpuscular Hemoglobin Concent 34 g/dL (31-37) Assessment Assessment POD 1 after bilateral TKA Plan Plan of Care Needs to stay in hospital for pain control at this time. Continue DVT prophylaxis and PT. Discharge planning. Justicifation of Admission Dx: Justifications for Admission: Justification of Admission Dx: N/A CHRISTOPHER MORFIN MD Jul 30, 2019 16:51
[2019-07-30 18:17] VITALS: BP 130/88
--- NOTE | 2019-07-30 19:31 | NUR ---
Patient voided 250 cc clear yellow urine. Post void residual 472ml. Patient wanting to try and void again within 30 minutes or so. Explained to him if unable or still high residual will need to straight catheter him. Patient verbalized understanding.
--- NOTE | 2019-07-30 20:49 | NUR ---
Patient voided 200cc clear yellow urine, Bladder scan revealed 182ml.
[2019-07-31] MEDS: oxyCODONE/APAP 5/325 1 TAB TABLET PO PRN ×3 (02:55→11:05)
[2019-07-31 04:43] LABS: HEMATOCRIT 32.8 % (39.0-53.0); HEMOGLOBIN 11.2 g/dL (13.0-17.5)
[2019-07-31 06:11] VITALS: BP 122/78
[2019-07-31] MEDS: SENNOSIDES/DOCUSATE 8.6/50MG TABLET. PO SCH (08:01)
[2019-07-31] MEDS: CELECOXIB 100 MG CAPSULE. PO SCH (08:01)
[2019-07-31] MEDS: ASPIRIN ENTERIC COATED 325 MG TABLET.DR. PO SCH ×2 (08:02→20:51)
[2019-07-31] MEDS: MULTIVITAMIN with MINERAL TABLET. PO SCH (08:02)
[2019-07-31] MEDS: fentaNYL PF VIAL 100 MCG/2 ML VIAL IVP PRN (12:18)
--- NOTE | 2019-07-31 16:06 | PATHOLOGY ---
[facility] Accession Number: [id number] . 01 Material submitted: . PART A: knee - LEFT KNEE BONE AND TISSUE. Modifiers: left PART B: knee - RIGHT KNEE BONE AND TISSUE. Modifiers: right . 01 Clinical history: . OA . 02 Diagnosis: A. Segments of bone, left total knee arthroplasty: - Degenerative arthritis. . B. Segments of bone and soft tissue, right total knee arthroplasty. - Degenerative arthritis. (JPM:[facility] 07/31/2019) [facility] 07/31/2019 0917 Local . 02 Electronically signed: . Bebeto Kowalski MD, Pathologist NPI- [id number] . 01 Gross description: . A. The specimen is received in formalin, labeled "Fidel Mitchello, left knee bone and tissue". Received are multiple segments of bone, including the tibial plateau measuring 9.9 x 9.7 x 3.6 cm in aggregate dimensions. The articular surfaces are pale hernandes, smooth to red-hernandes, granular in appearance with no grossly distinct eburnation identified. Meniscus and soft tissue are absent. The specimen is submitted representatively in cassette A1, following decalcification. . B. The specimen is received in formalin, labeled "Fidel Mitchello, right knee bone and tissue". Received are multiple segments of bone, including the tibial plateau, measuring 9.9 x 8.7 x 3.0 cm in aggregate dimensions. Meniscus is present. The articular surfaces are smooth to granular in appearance with no grossly distinct eburnation identified. The specimen is submitted representatively in cassette B1, following decalcification. (CAA; 07/29/2019) QAC/QAC 07/29/2019 1544 Local . 02 Pathologist provided ICD-10: M17.12, M17.11 . 02 CPT . 457550, 155721, 683298, [id number] Specimen Comment: A courtesy copy of this report has been sent to [phone], [phone] Specimen Comment: [id number] Specimen Comment: Report sent to / DR HE Performed at: [facility] [address], [place] [id number] MD Aguila Reid MD Phone: [phone] [facility]formed at: [facility] [address], [place] [id number] MD Bebeto Kowalski MD Phone: [phone]
--- NOTE | 2019-07-31 17:10 | PDOC ---
PROGRESS NOTES Subjective Subjective Still having quite a bit of pain. Got fentanyl again. Will switch to Percocet . Objective Vital Signs Vital Signs Date Time Temp Pulse Resp B/P (MAP) Pulse Ox O2 Delivery O2 Flow Rate FiO2 07/31/19 12:18 Room Air 07/31/19 06:11 98.6 98 18 122/78 (93) 94 98.6 07/29/19 16:49 1.0 Physical Exam Calves soft and NT. Some spotty drainage on PICOs, I will likely change them tomorrow. Labs Laboratory Tests Test 07/30/19 03:30 07/31/19 03:25 Hemoglobin 12.3 g/dL (13.0-17.5) 11.2 g/dL (13.0-17.5) Hematocrit 35.7 % (39.0-53.0) 32.8 % (39.0-53.0) Mean Corpuscular Hemoglobin Concent 34 g/dL (31-37) 34 g/dL (31-37) Laboratory Tests Test 07/31/19 03:25 Hemoglobin 11.2 g/dL (13.0-17.5) Hematocrit 32.8 % (39.0-53.0) Mean Corpuscular Hemoglobin Concent 34 g/dL (31-37) Assessment Assessment POD#2 after bilateral TKA Plan Plan of Care Pain control. Discharge planning for tomorrow. Justicifation of Admission Dx: Justifications for Admission: Justification of Admission Dx: N/A CHRISTOPHER MORFIN MD Jul 31, 2019 17:10
[2019-07-31] MEDS: oxyCODONE/APAP 10/325 1 TAB TABLET PO PRN ×2 (17:44→22:53)
[2019-07-31 17:58] VITALS: BP 137/91
--- NOTE | 2019-07-31 18:04 | NUR ---
Spoke with Dr. Gutierrez regarding uncontrolled discomfort received order for Percocet 10mg, will continue to observe
[2019-08-01] MEDS: oxyCODONE/APAP 10/325 1 TAB TABLET PO PRN ×4 (03:24→15:38)
[2019-08-01 05:12] LABS: HEMATOCRIT 29.9 % (39.0-53.0); HEMOGLOBIN 10.5 g/dL (13.0-17.5)
[2019-08-01 05:42] VITALS: BP 125/84
[2019-08-01] MEDS: CELECOXIB 100 MG CAPSULE. PO SCH (07:48)
[2019-08-01] MEDS: MULTIVITAMIN with MINERAL TABLET. PO SCH (07:48)
[2019-08-01] MEDS: ASPIRIN ENTERIC COATED 325 MG TABLET.DR. PO SCH (07:48)
[2019-08-01] MEDS: SENNOSIDES/DOCUSATE 8.6/50MG TABLET. PO SCH (07:48)
--- NOTE | 2019-08-01 15:02 | PDOC ---
PROGRESS NOTES Subjective Subjective Doing well. Planning for discharge today. Objective Vital Signs Vital Signs Date Time Temp Pulse Resp B/P (MAP) Pulse Ox O2 Delivery O2 Flow Rate FiO2 08/01/19 12:43 99 Room Air 08/01/19 05:42 98.7 99 125/84 (98) 98.7 08/01/19 04:41 18 07/29/19 16:49 1.0 Physical Exam PRERNA dressing changed on right knee, left is still dry. Incisions benign. Calves soft and NT. Negative Jennifer's sign. Labs Laboratory Tests Test 07/31/19 03:25 08/01/19 05:00 Hemoglobin 11.2 g/dL (13.0-17.5) 10.5 g/dL (13.0-17.5) Hematocrit 32.8 % (39.0-53.0) 29.9 % (39.0-53.0) Mean Corpuscular Hemoglobin Concent 34 g/dL (31-37) 35 g/dL (31-37) Laboratory Tests Test 08/01/19 05:00 Hemoglobin 10.5 g/dL (13.0-17.5) Hematocrit 29.9 % (39.0-53.0) Mean Corpuscular Hemoglobin Concent 35 g/dL (31-37) Assessment Assessment POD #3 after BTKA Plan Plan of [facility] today. Oral pain meds. Aspirin BID for DVT prophylaxis. Follow up with my office Sunday. Outpatient PT. Justicifation of Admission Dx: Justifications for Admission: Justification of Admission Dx: N/A CHRISTOPHER MORFIN MD Aug 01, 2019 15:02
[2019-08-01] MEDS ORDERED: ASPI325T11 PO (15:07)
[2019-08-01] MEDS ORDERED: OXYC1TAB22 PO (15:07)
[2019-08-01] MEDS ORDERED: CELE200C PO (15:07)
--- NOTE | 2019-08-01 15:30 | PDOC3 ---
Discharge Summary Visit Information Date of Admission: Jul 29, 2019 Date of Discharge: Aug 01, 2019 Admitting Diagnosis: osteoarthritis both knees Final Diagnosis osteoarthritis both knees aftercare after bilateral total knee arthroplasty Brief Hospital Course Allergies Allergies Coded Allergies Type Severity Reaction Last Updated Verified No Known Drug Allergies 07/29/19 No Vital Signs Vital Signs Date Time Temp Pulse Resp B/P (MAP) Pulse Ox O2 Delivery O2 Flow Rate FiO2 08/01/19 12:43 99 Room Air 08/01/19 05:42 98.7 99 125/84 (98) 98.7 08/01/19 04:41 18 Lab Results Laboratory Tests Test 07/31/19 03:25 08/01/19 05:00 Hemoglobin 11.2 g/dL (13.0-17.5) 10.5 g/dL (13.0-17.5) Hematocrit 32.8 % (39.0-53.0) 29.9 % (39.0-53.0) Mean Corpuscular Hemoglobin Concent 34 g/dL (31-37) 35 g/dL (31-37) Laboratory Tests Test 08/01/19 05:00 Hemoglobin 10.5 g/dL (13.0-17.5) Hematocrit 29.9 % (39.0-53.0) Mean Corpuscular Hemoglobin Concent 35 g/dL (31-37) Brief Hospital Course 59 year old who presented with knee osteoarthritis, for elective bilateral total knee arthroplasty. The patient underwent bilateral total knee arthroplasty under general anesthesia the day of admission. Perioperative antibiotics and DVT prophylaxis were used. Postoperatively physical therapy and case management were consulted. The patient progressed and is stable for discharge. Discharge Information Condition at Discharge: Stable Follow Up: Weeks Disposition/Orders: D/C to Home Scheduled Aspirin (Aspirin Ec), 325 MG PO BID Celecoxib (Celebrex), 1 CAP PO DAILY Scheduled PRN Oxycodone/Apap 10-325 (Percocet 10-325 Mg Tablet ), 1-2 TAB PO PRN Q4HRS PRN for PAIN Discontinued Medications Acetaminophen (Acetaminophen), 2 TAB PO PRN Q4-6HRS PRN for PAIN, (Reported) Aspirin (Aspirin), 325 MG PO DAILY, (Reported) Multivitamin (Multi Vitamin Daily), 1 EACH PO DAILY, (Reported) Naproxen (Naproxen), 500 MG PO PRN Q6-8HRS PRN for PAIN, (Reported) Saw/Vit E/Sod Radha/Lyc/Beta/Pyg (Prostate Health Caplet), 1 EACH PO DAILY, (Reported) Patient Instructions Patient Instructions Continue to weight bearing as tolerated with walker. Follow up with Dr. Gutierrez's office Sunday. Call for appointment unless already scheduled. Continue enteric coated aspirin 325 mg by mouth twice a day for 30 days to prevent blood clots. Justicifation of Admission Dx: Justifications for Admission: Justification of Admission Dx: N/A CHRISTOPHER GUTIERREZ MD Aug 01, 2019 15:30
--- NOTE | 2019-08-01 16:23 | NUR ---
Patient left the building around 1545 with his . Discharge education done by this nurse, therapy, and the doctor prior to discharge. PRERNA changed to right knee and old drain site changed as well. PRERNA dressing was not changed on his left knee due to only a scant amount of old drainage noted but old drain site dressing was changed. NO IV access present at discharge. Follow up appointment gone over in detail with family. Medication and dressing care gone over with the patient and his . Scripts for percocet 10/325, aspirin, and celebrex all given to the patient. No concerns noted at discharge.
== END 2019-08-01 15:45 | disposition home or self-care (01) | DRG 462 ==
LOC: SURG 05:50 → 4 SOUTHEST 12:39 → OBSVTOIN 07-31 12:51
PROVIDERS: ADMIT Orthopaedic Surgery; ATTEND Orthopaedic Surgery
PROC: 0SRC069 Replacement of Right Knee Joint with Oxidized Zirconium on Polyethylene Synthetic Substitute, Cemented, Open Approach (ICD-10-PCS; 2019-07-29)
PROC: 8E0Y0CZ Robotic Assisted Procedure of Lower Extremity, Open Approach (ICD-10-PCS; 2019-07-29)
PROC: 0SRD069 Replacement of Left Knee Joint with Oxidized Zirconium on Polyethylene Synthetic Substitute, Cemented, Open Approach (ICD-10-PCS; principal; 2019-07-29 07:10)
DX: M17.0 Bilateral primary osteoarthritis of knee (principal)
CPT/HCPCS: 36415; 73560; 85014; 85018; 85025; 86850; 86900; 86901; 88305; 88311; A7015; C1713; G0378; G0379; J0171; J0330; J0360; J0690; J0696; J0780; J1100; J1885; J2250; J2270; J2405; J2704; J2710; J2795; J3010; J3260; J3370; J3490; J7030; J7120; 97116-GP; 97150-GP; 97530-GP; 97535-GO; A4461; C1769

== ENCOUNTER → 2019-08-12 | Outpatient (CLI) | payer OTHER ==
[2019-08-01 05:42] VITALS: BP 125/84
[~2019-08-12] MED LIST changes: +ASPI325T11 PO; +CELE200C PO; +OXYC1TAB22 PO; +SENN8.6T99 PO
== END ==
LOC: LAB 14:03
PROVIDERS: ATTEND Orthopaedic Surgery
DX: Z01.818 Encounter for other preprocedural examination (principal); Z11.59 Encounter for screening for other viral diseases; M23.42 Loose body in knee, left knee
CPT/HCPCS: U0003-CS

== ENCOUNTER 2019-08-15 07:33 | Day surgery (SDC) | payer OTHER ==
[~2019-08-15] VITALS: Ht 180.3 cm; Wt 114.3 kg
[~2019-08-15 07:33] MED LIST changes: +HYDROmorphone 2 MG/ML VIAL IV PRN; +IV RINGERS,LACTATED 1000ML 1,000 ML IV SCH; +LIDOCAINE 1% PF 2 ML VIAL. ID PRN; +ONDANSETRON PF 4 MG/2 ML VIAL. IV PRN; +PROCHLORPERAZINE 10 MG/2 ML VIAL. IV PRN; +fentaNYL PF VIAL 100 MCG/2 ML VIAL IV PRN
[2019-08-15] MEDS ORDERED: KETOROLAC 30 MG/ML VIAL. ONE (08:09)
[2019-08-15] MEDS ORDERED: LIDOCAINE 2% PF 5 ML VIAL. ONE (08:09)
[2019-08-15] MEDS ORDERED: DEXAMETHASONE SOD PHOS 4 MG/ML VIAL ONE (08:09)
[2019-08-15] MEDS ORDERED: ONDANSETRON PF 4 MG/2 ML VIAL. ONE (08:09)
[2019-08-15] MEDS ORDERED: SEVOFLURANE 61 TO 120 MINUTES. IH ONE (08:09)
[2019-08-15] MEDS ORDERED: PROPOFOL 10 MG/ML (20ML) VIAL. IV ONE (08:09)
[2019-08-15] MEDS ORDERED: EPINEPHrine VIAL 30 MG/30 ML VIAL ONE (08:22)
[2019-08-15] MEDS ORDERED: BUPIVACAINE MPF 0.25% 30 ML VIAL. ONE ×2 (08:23→08:24)
[2019-08-15] MEDS ORDERED: fentaNYL PF VIAL 100 MCG/2 ML VIAL ONE ×2 (08:46→09:09)
[2019-08-15] MEDS ORDERED: BUPIVACAINE MPF 0.25% 30 ML VIAL. INJ ONE (09:00)
[2019-08-15] MEDS ORDERED: EPINEPHrine 1 MG/ML VIAL IRR ONE (09:00)
--- NOTE | 2019-08-15 09:53 | PDOC4 ---
Operative Note Operative Note Date of Procedure: August 15, 2019 Pre-Op Diagnosis: Right Knee Foreign Body [id number]--Q-6-7-.-4-2- (correction M23.41, and also T81.507 Unspecified complication of foreign body accidentally left in body following removal of catheter or packing) JNV 08/15/2019 10:05 a.m. Post-Op Diagnosis: same Procedure: Right knee arthroscopy with Foreign Body Removal CPT 76464 Surgeon: Christopher Gutierrez MD Senior Infrastructure Engineer: Afshin VASQUEZ Anesthesia: General EBL: 10 mL Specimens Obtained: none, (arthroscopic photo taken of drain fragment) Complications: none Drains: none Tourniquet time: 20 Minutes Tourniquet pressure: 350 mm Hg Indications for Procedure: The patient is a 59 year old who had bilateral total knee arthroplasty 2-1/2 weeks ago. At the time of drain catheter removal on the day after surgery there was apparently some difficulty with removal of the drain. Postoperative x-rays show a fragment of retained Hemovac drain in the right knee. I recommended right knee arthroscopy with foreign body removal once the surgical incision showed healed skin edges. We discussed the potential risks of infection, bleeding, blood clots, neurovascular injury, or other potential surgical or anesthetic complications. The patient and I discussed the risks, benefits and alternatives of surgery. All of the patients questions were answered and he desired to proceed. Procedure in Detail: The patient was identified in the preoperative holding area. The correct right lower extremity was marked by me. The patient was taken to the operating room where anesthesia was used. The patient was positioned supine on the operating table. Preoperative antibiotics were given intravenously. A timeout procedure was performed. A tourniquet was placed on the upper right thigh. A surgical scrub brush was used first to remove remaining adhesive and debris from Steri-Strips, and remove any superficial eschar from the nearly healed surgical incision. There is no drainage at the surgical incision and no open wound. Local anesthetic with epinephrine, 20 mL's of 0.25% bupivacaine were injected into the knee joint using sterile technique after prep of the lateral knee using ChloraPrep. The right lower limb was prepared circumferentially with sterile ChloraPrep solution and sterile drapes were applied. An impervious stockinette was used over the lower leg. The limb was exsanguinated with an Esmarch bandage. The tourniquet was inflated. Lateral and medial arthroscopy portals were established. The medial joint line shows expected trace amounts of blood and scar tissue consistent with recent total knee arthroplasty. Shaving was used to identify the joint line and there is no drain fragment or loose body in the medial compartment. My registered medical assistant Afshin manipulated the knee into the different positions for arthroscopy while I ran the arthroscope and my left hand and the shaver, probe, or other instruments in my right hand. The intercondylar notch likewise shows normal postoperative findings, and the shaver was used to remove some of the expected hematoma. At the anterior aspect of the lateral joint line the drain fragment was noted. It was grasped with an arthroscopic grabber, and came out easily. I do not believe that had been sutured to the tissues. My impression is the drain must have been trapped in the lateral joint line when the drain was removed and broke off as a result of that. I found no suture holding in the drain and the suture line is medial where is the drain fragment is lateral. It was removed easily, and an arthroscopic photo was taken. The lateral joint line was otherwise normal. The patellofemoral joint was normal. Copious saline irrigation was used. After systematic and examination of the knee joint and copious irrigation the knee was drained of fluid. The portals were closed with 3-0 Prolene sutures by my registered medical assistant. Local anesthetic 30 mL's of 0.25% bupivacaine was injected into t he knee joint. No drain was used. A sterile dressing was applied. The tourniquet was released. Needle and sponge counts were correct. There were no apparent complications. CHRISTOPHER GUTIERREZ MD Aug 15, 2019 09:53
[2019-08-15] MEDS ORDERED: oxyCODONE/APAP 10/325 1 TAB TABLET PO ONE (10:00)
[2019-08-15] MEDS: MORPHINE SULFATE 2 MG/ML VIAL. IV PRN ×2 (10:07→10:19)
[2019-08-15 10:15] VITALS: BP 159/92
== END 2019-08-15 10:55 | disposition home or self-care (01) ==
LOC: SURG 07:33
PROVIDERS: ATTEND Orthopaedic Surgery
DX: T81.50 Unspecified complication of foreign body accidentally left in body following procedure (principal); E66.9 Obesity, unspecified; Z68.35 Body mass index [BMI] 35.0-35.9, adult; Z87.891 Personal history of nicotine dependence; Z98.52 Vasectomy status; Z87.39 Personal history of other diseases of the musculoskeletal system and connective tissue; Y83.8 Other surgical procedures as the cause of abnormal reaction of the patient, or of later complication, without mention of misadventure at the time of the procedure; Y92.89 Other specified places as the place of occurrence of the external cause
CPT/HCPCS: 29874; A7015; J0171; J0696; J1100; J1885; J2270; J2405; J2704; J3010; J3490; J0690